=== PATIENT | female | born 1985 | race Caucasian/White ===

== ENCOUNTER 2017-08-09 16:31 | Emergency (ER) | payer OTHER ==
[~2017-08-09] VITALS: Ht 165.1 cm; Wt 90.0 kg
[~2017-08-09 16:31] MED LIST: ACET120S PO; CYCL-36 PO; IBUP100S30 PO
[2017-08-09 16:34] VITALS: BP 135/85; PULSE 107; RESP 20; TEMP 98.2; O2SAT 100
--- NOTE | 2017-08-09 17:23 | PD ---
HPI Chief Complaint: Injury Time Seen by Provider: 17:00 Travel History International Travel<30 days: No Contact w/Intl Traveler<30days: No Traveled to known affect area: No History of Present Illness HPI 31-year-old female here with left ankle and foot pain after she twisted extremity while walking. Injury occurred prior to arrival. She did not fall to the ground. No loss of consciousness. She denies paresthesia or weakness of the extremity. She has pain with weightbearing range of motion. Slightly relieved with rest. Symptoms severity moderate. PFSH Past Medical History Medical History: Denies Significant Hx Diminished Hearing: No Immunizations Current: Yes Tetanus Vaccination: Unknown Influenza Vaccination: No ?: Not LMP: 07/16/2017 Past Surgical History Tonsillectomy: Yes Social History Alcohol Use: No Tobacco Use: No Substance Use: No Allergies-Medications (Allergen,Severity, Reaction): Coded Allergies: No Known Allergies (Unverified Adverse Reaction, Unknown, 08/09/17) Reported Meds & Prescriptions Reported Meds & Active Scripts Active Acetaminophen/Codeine (Acetaminophen/Codeine Phosphate) Acetaminophen 120/12 Codeine/5ML Btl 20 Ml PO Q6HR PRN 5 Days Flexeril (Cyclobenzaprine HCl) 10 Mg Tab 10 Mg PO TID Ibuprofen Children's (Ibuprofen) 100 Mg/5 Ml Deanna 800 Mg PO Q8H PRN 10 Days Review of Systems Except as stated in HPI: all other systems reviewed are Neg Physical Exam Narrative GENERAL: Alert and well-appearing female. SKIN: Warm and dry. HEAD: Normocephalic. Atraumatic EYES: No injection or drainage. NECK: Supple, trachea midline. CARDIOVASCULAR: Regular rate and rhythm without murmurs, gallops, or rubs. RESPIRATORY: Breath sounds equal bilaterally. No accessory muscle use. GASTROINTESTINAL: Abdomen soft, non-tender, nondistended. MUSCULOSKELETAL: No cyanosis. Left lower extremity: Notable tenderness, swelling, ecchymosis to the lateral malleolus. The ankle is stable. No deformity. 2+ dorsal pedis pulses. Brisk cap refill. Data Data Last Documented VS Vital Signs Date Time Temp Pulse Resp B/P (MAP) Pulse Ox O2 Delivery O2 Flow Rate FiO2 08/09/17 16:34 98.2 107 20 135/85 (102) 100 Orders Orders Ankle, Complete ([id number]) (08/09/17 ) Foot, Heel Only ([id number]) (08/09/17 ) MDM Medical Decision Making Medical Screen Exam Complete: Yes Emergency Medical Condition: Yes Differential Diagnosis Ankle sprain, strain, fracture, contusion Narrative Course 31-year-old female here with left ankle pain after twisting injury today. Extremities neurovascular intact. X-ray left ankle:negative for fx Diagnosis Primary Impression: Ankle sprain Qualified Codes: S93.402A - Sprain of unspecified ligament of left ankle, initial encounter Referrals: Primary Care Physician Additional Instructions: ankle splint & crutches as directed. Rest, ice, elevate the extremity. Ibuprofen 800mg every 6 hours as needed for pain. Disposition: 01 DISCHARGE HOME Condition: Stable Deepa Benitez Aug 09, 2017 17:23
--- NOTE | 2017-08-09 18:06 | RADRPT ---
EXAM DATE/TIME: 08/09/2017 17:23 [facility] COMPARISON: No previous studies available for comparison. INDICATIONS : Twist injury while walking today, has left heel pain MEDICAL HISTORY : None. SURGICAL HISTORY : None. ENCOUNTER: Initial ACUITY: 1 day PAIN SCORE: 8/10 LOCATION: Left heel FINDINGS: Two view examination of the left heel demonstrates the trabecula to be intact with no evidence of fra cture. There is a normal calcaneal angle. The soft tissues are of normal thickness. CONCLUSION: 1. There is no evidence of acute fracture. Bryon Gu MD on August 09, 2017 at 18:04 Board Certified Radiologist. This report was verified electronically.
--- NOTE | 2017-08-09 18:06 | RADRPT ---
EXAM DATE/TIME: 08/09/2017 17:19 [facility] COMPARISON: No previous studies available for comparison. INDICATIONS : Twisted foot while walking today, has all over ankle pain MEDICAL HISTORY : None. SURGICAL HISTORY : None. ENCOUNTER: Initial ACUITY: 1 day PAIN SCORE: 8/10 LOCATION: Left ankle FINDINGS: Three view exam was performed of the left ankle. The bony structures are in normal alignment. No ev idence of fracture, dislocation, or soft tissue swelling. The ankle mortise is intact. No radiopaqu e foreign bodies are seen. Bony mineralization is normal. CONCLUSION: 1. There is no evidence of acute fracture. Bryon Gu MD on August 09, 2017 at 18:04 Board Certified Radiologist. This report was verified electronically.
== END 2017-08-09 18:45 | disposition home or self-care (01) ==
LOC: PHEFT 16:31
DX: S93.402A Sprain of unspecified ligament of left ankle, initial encounter (principal); X50.1XXA Overexertion from prolonged static or awkward postures, initial encounter; Y93.01 Activity, walking, marching and hiking
CPT/HCPCS: 73610; 73650; 99283; E0113; L1906